=== PATIENT | male | born 1950 | race Caucasian/White ===

== ENCOUNTER 2016-12-11 13:24 | Inpatient (IN) | payer MEDICARE ==
[2016-12-11] MEDS ORDERED: ASPIRIN-DIPYRI1 EACH PO (13:36)
[2016-12-11] MEDS ORDERED: SPIRIVA18 MC1 INH (13:37)
[2016-12-11] MEDS ORDERED: ZEBETA5 M2 PO (13:37)
[2016-12-11] MEDS ORDERED: VALIUM10 M1 PO (13:37)
[2016-12-11] MEDS ORDERED: CELEBREX200 M1 PO (13:37)
[2016-12-11] MEDS ORDERED: AMITRIPTYLINE H25 M1 PO (13:38)
[2016-12-11] MEDS ORDERED: FISH OIL 11000 MG/CA PO (13:49)
[2016-12-11] MEDS ORDERED: GINSENG100 M2 PO (13:49)
[2016-12-11] MEDS ORDERED: ASPIRIN EC325 M1 PO (13:49)
[2016-12-11] MEDS ORDERED: GARLIC1 EAC1 PO (13:50)
[2016-12-11] MEDS ORDERED: ZINC PO (13:51)
[2016-12-11 14:20] LABS: ABG CO2 ARTERIAL 35 mmol/L (21-27); ARTERIAL BLD GAS O2 SATURATION 88 % (95-98); ARTERIAL BLOOD GAS PCO2 55 mmHg (32-45); ARTERIAL PO2 57 mmHg (70-100); BICARBONATE 33 mmol/L (21-28); BLOOD GAS BASE EXCESS 7 mM/L (-/+3)
[2016-12-11 14:26] LABS: BASO % 0.1 % (0-2); EOS % 1.1 % (0-7); EOSINOPHIL ABSOLUTE COUNT 0.1 tho/cmm (0.0-0.7); HGB-HEMOGLOBIN 20.1 gm/dl (13.5-17.0); IMMATURE GRANULOCYTES ABSOLUTE 0.03 tho/cmm (0-0.03); IMMATURE GRANULOCYTES PERCENT 0.3 % (0-0.3); LYMPH % 14.3 % (20-45); LYMPH ABSOLUTE COUNT 1.3 tho/cmm (0.8-4.5); MCHC MEAN CORPUSCULAR HGB CONC 33.1 % (32.0-36.0); MCV (MEAN CELL VOLUME) 99.5 fl (82.0-96.0); MEAN PLATELET VOLUME 10.6 cmc (9.4-12.4); MONO % 8.9 % (0-12); MONOCYTE ABSOLUTE COUNT 0.8 tho/cmm (0.0-1.2); NEUTROPHIL ABSOLUTE COUNT 6.8 tho/cmm (1.6-8.0); NEUTROPHIL-AUTOMATED 6.8 tho/cmm (1.6-8.0); NEUTROPHILS % 75.3 % (40-80); PLATELET COUNT 144 tho/cmm (150-450); RED CELL DISTRIBUTION WIDTH 15.6 % (12.4-16.4)
[2016-12-11 14:39] LABS: ANION GAP 9 mmol/L (0-20); BLOOD UREA NITROGEN 18 mg/dl (6-24); CALCIUM 8.8 mg/dl (8.5-10.5); CARBON DIOXIDE-VENOUS 34 mmol/L (22-32); CHLORIDE 100 mmol/l (96-110); CREATININE 1.19 mg/dl (0.60-1.30); GLUCOSE 102 mg/dL (70-110); MAGNESIUM 2.1 mg/dl (1.3-2.6); SODIUM 139 mmol/L (135-145); eGFR VALUE FOR BLACK 74 mL/Min
[2016-12-11 14:40] LABS: INR 1.2 INR (0.9-1.1); PROTHROMBIN TIME 13.6 SECONDS (9.0-13.6)
[2016-12-11 14:50] LABS: POTASSIUM 3.9 mmol/L (3.7-5.1)
[2016-12-11 14:54] LABS: ALB/GLOB RATIO 0.6 (0.8-2.0); ALBUMIN 3.1 g/dl (3.5-5.0); BILIRUBIN,DIRECT 0.7 mg/dl (0.0-0.3); BILIRUBIN,INDIRECT 1.3 mg/dL (0.0-1.0)
[2016-12-11 14:57] LABS: PROCALCITONIN <0.05 ng/ml (0.05-0.09)
[2016-12-11 15:06] LABS: HCT-HEMATOCRIT 60.7 % (36.0-53.5)
[2016-12-11 16:46] LABS: ABG CO2 ARTERIAL 39 mmol/L (21-27); BICARBONATE 36 mmol/L (21-28); BLOOD GAS BASE EXCESS 5 mM/L (-/+3); PH 7.27 Units (7.35-7.45)
[2016-12-11 16:51] LABS: ARTERIAL BLD GAS O2 SATURATION 98 % (95-98); ARTERIAL PO2 165 mmHg (70-100)
[2016-12-11 16:54] LABS: ARTERIAL BLOOD GAS PCO2 81 mmHg (32-45)
[2016-12-11 20:01] LABS: ABG CO2 ARTERIAL 37 mmol/L (21-27); ARTERIAL BLD GAS O2 SATURATION 95 % (95-98); ARTERIAL BLOOD GAS PCO2 71 mmHg (32-45); ARTERIAL PO2 84 mmHg (70-100); BICARBONATE 34 mmol/L (21-28); BLOOD GAS BASE EXCESS 5 mM/L (-/+3); PH 7.31 Units (7.35-7.45)
[2016-12-12 03:53] LABS: BASO % 0.1 % (0-2); EOS % 0.3 % (0-7); HCT-HEMATOCRIT 56.2 % (36.0-53.5); HGB-HEMOGLOBIN 18.4 gm/dl (13.5-17.0); IMMATURE GRANULOCYTES ABSOLUTE 0.01 tho/cmm (0-0.03); IMMATURE GRANULOCYTES PERCENT 0.1 % (0-0.3); LYMPH % 4.1 % (20-45); LYMPH ABSOLUTE COUNT 0.4 tho/cmm (0.8-4.5); MCH (MEAN CORPUSCULAR HGB) 32.6 pg (28.0-32.0); MCHC MEAN CORPUSCULAR HGB CONC 32.7 % (32.0-36.0); MCV (MEAN CELL VOLUME) 99.6 fl (82.0-96.0); MEAN PLATELET VOLUME 10.9 cmc (9.4-12.4); MONO % 1.9 % (0-12); MONOCYTE ABSOLUTE COUNT 0.2 tho/cmm (0.0-1.2); NEUTROPHIL ABSOLUTE COUNT 8.5 tho/cmm (1.6-8.0); NEUTROPHIL-AUTOMATED 8.5 tho/cmm (1.6-8.0); NEUTROPHILS % 93.5 % (40-80); PLATELET COUNT 154 tho/cmm (150-450); RED BLOOD COUNT 5.64 mil/cmm (4.40-5.70); RED CELL DISTRIBUTION WIDTH 15.5 % (12.4-16.4); WHITE BLOOD COUNT 9.1 tho/cmm (4.0-10.0)
[2016-12-12 04:12] LABS: ABG CO2 ARTERIAL 35 mmol/L (21-27); ARTERIAL BLD GAS O2 SATURATION 93 % (95-98); BICARBONATE 33 mmol/L (21-28); BLOOD GAS BASE EXCESS 7 mM/L (-/+3); PH 7.43 Units (7.35-7.45)
[2016-12-12 04:14] LABS: ARTERIAL BLOOD GAS PCO2 51 mmHg (32-45); ARTERIAL PO2 66 mmHg (70-100)
[2016-12-12 05:06] LABS: URINE BILIRUBIN NEGATIVE (NEG); URINE BLOOD LARGE (NEG); URINE GLUCOSE (UA) NEGATIVE (NEG); URINE KETONE SMALL (NEG); URINE LEUKOCYTE ESTERASE POSITIVE (NEG); URINE NITRITE NEGATIVE (NEG); URINE PROTEIN MODERATE (NEG)
[2016-12-12 05:18] LABS: URINE APPEARANCE HAZY; URINE COLOR YELLOW
[2016-12-12 05:40] LABS: URINE BACTERIA 1+; URINE RBC 80-100 /[HPF] (0-5); URINE WBC FULL FIELD /[HPF] (0-5)
[2016-12-12 09:17] LABS: BLOOD UREA NITROGEN 17 mg/dl (6-24); CALCIUM 8.4 mg/dl (8.5-10.5); CARBON DIOXIDE-VENOUS 30 mmol/L (22-32); CHLORIDE 102 mmol/l (96-110); GLUCOSE 106 mg/dL (70-110); PHOSPHOROUS 3.1 mg/dl (2.5-4.9); SODIUM 140 mmol/L (135-145); eGFR VALUE FOR BLACK >90 mL/Min
[2016-12-12 09:28] LABS: ANION GAP 13 mmol/L (0-20); MAGNESIUM 1.8 mg/dl (1.3-2.6)
[2016-12-12 11:29] LABS: ABG CO2 ARTERIAL 33 mmol/L (21-27); ARTERIAL BLD GAS O2 SATURATION 96 % (95-98); ARTERIAL BLOOD GAS PCO2 41 mmHg (32-45); ARTERIAL PO2 77 mmHg (70-100); BICARBONATE 31 mmol/L (21-28); BLOOD GAS BASE EXCESS 8 mM/L (-/+3)
[2016-12-14 04:23] LABS: PLATELET COUNT 222 tho/cmm (150-450)
[2016-12-15 14:19] LABS: HCT-HEMATOCRIT 53.7 % (36.0-53.5); IMMATURE GRANULOCYTES ABSOLUTE 0.03 tho/cmm (0-0.03); IMMATURE GRANULOCYTES PERCENT 0.3 % (0-0.3); LYMPH % 6.4 % (20-45); LYMPH ABSOLUTE COUNT 0.7 tho/cmm (0.8-4.5); MCH (MEAN CORPUSCULAR HGB) 32.9 pg (28.0-32.0); MCHC MEAN CORPUSCULAR HGB CONC 33.5 % (32.0-36.0); MCV (MEAN CELL VOLUME) 98.2 fl (82.0-96.0); MONO % 4.8 % (0-12); MONOCYTE ABSOLUTE COUNT 0.5 tho/cmm (0.0-1.2); NEUTROPHIL ABSOLUTE COUNT 9.6 tho/cmm (1.6-8.0); NEUTROPHIL-AUTOMATED 9.6 tho/cmm (1.6-8.0); NEUTROPHILS % 88.5 % (40-80); PLATELET COUNT 211 tho/cmm (150-450); RED BLOOD COUNT 5.47 mil/cmm (4.40-5.70); RED CELL DISTRIBUTION WIDTH 14.5 % (12.4-16.4); WHITE BLOOD COUNT 10.8 tho/cmm (4.0-10.0)
[2016-12-15 14:29] LABS: ANION GAP 10 mmol/L (0-20); BLOOD UREA NITROGEN 25 mg/dl (6-24); CALCIUM 8.3 mg/dl (8.5-10.5); CARBON DIOXIDE-VENOUS 36 mmol/L (22-32); CHLORIDE 94 mmol/l (96-110); CREATININE 1.04 mg/dl (0.60-1.30); GLUCOSE 139 mg/dL (70-110); POTASSIUM 4.1 mmol/L (3.7-5.1); SODIUM 136 mmol/L (135-145); eGFR VALUE FOR BLACK 87 mL/Min
[2016-12-16 04:16] LABS: HGB-HEMOGLOBIN 17.4 gm/dl (13.5-17.0); PLATELET COUNT 214 tho/cmm (150-450)
[2016-12-16 13:44] LABS: URINE APPEARANCE CLEAR; URINE BILIRUBIN SMALL (NEG); URINE BLOOD MODERATE (NEG); URINE COLOR DARK YELLOW; URINE GLUCOSE (UA) NEGATIVE (NEG); URINE KETONE NEGATIVE (NEG); URINE LEUKOCYTE ESTERASE POSITIVE (NEG); URINE NITRITE NEGATIVE (NEG); URINE PROTEIN MODERATE (NEG); URINE SPECIFIC GRAVITY 1.015 (1.003-1.030)
[2016-12-16 14:16] LABS: URINE EPITHELIAL CELLS 0 /[HPF] (0-10); URINE WBC 0-1 /[HPF] (0-5)
[2016-12-17 04:35] LABS: ALB/GLOB RATIO 0.6 (0.8-2.0); ALBUMIN 2.7 g/dl (3.5-5.0); ALKALINE PHOSPHATASE 57 U/L (33-138); ALT/SGPT 173 U/L (12-78); BLOOD UREA NITROGEN 28 mg/dl (6-24); CALCIUM 8.4 mg/dl (8.5-10.5); CARBON DIOXIDE-VENOUS 40 mmol/L (22-32); CHLORIDE 91 mmol/l (96-110); GLUCOSE 142 mg/dL (70-110); SODIUM 133 mmol/L (135-145); eGFR VALUE FOR BLACK >90 mL/Min
[2016-12-17 04:52] LABS: ANION GAP 7 mmol/L (0-20); AST/SGOT 53 U/L (10-40); POTASSIUM 4.6 mmol/L (3.7-5.1)
[2016-12-17 04:58] LABS: HCT-HEMATOCRIT 53.6 % (36.0-53.5); HGB-HEMOGLOBIN 17.7 gm/dl (13.5-17.0); IMMATURE GRANULOCYTES ABSOLUTE 0.03 tho/cmm (0-0.03); IMMATURE GRANULOCYTES PERCENT 0.2 % (0-0.3); LYMPH % 4.1 % (20-45); LYMPH ABSOLUTE COUNT 0.5 tho/cmm (0.8-4.5); MCH (MEAN CORPUSCULAR HGB) 32.6 pg (28.0-32.0); MCV (MEAN CELL VOLUME) 98.7 fl (82.0-96.0); MEAN PLATELET VOLUME 10.4 cmc (9.4-12.4); MONO % 5.9 % (0-12); MONOCYTE ABSOLUTE COUNT 0.8 tho/cmm (0.0-1.2); NEUTROPHIL ABSOLUTE COUNT 11.6 tho/cmm (1.6-8.0); NEUTROPHIL-AUTOMATED 11.6 tho/cmm (1.6-8.0); NEUTROPHILS % 89.8 % (40-80); PLATELET COUNT 208 tho/cmm (150-450); RED BLOOD COUNT 5.43 mil/cmm (4.40-5.70); RED CELL DISTRIBUTION WIDTH 14.6 % (12.4-16.4)
[2016-12-17 10:56] LABS: ABG CO2 ARTERIAL 39 mmol/L (21-27); ARTERIAL BLD GAS O2 SATURATION 92 % (95-98); ARTERIAL BLOOD GAS PCO2 67 mmHg (32-45); ARTERIAL PO2 65 mmHg (70-100); BICARBONATE 37 mmol/L (21-28); BLOOD GAS BASE EXCESS 8 mM/L (-/+3); PH 7.36 Units (7.35-7.45)
[2016-12-17 15:48] LABS: ARTERIAL BLD GAS O2 SATURATION 92 % (95-98); ARTERIAL PO2 68 mmHg (70-100); BICARBONATE 42 mmol/L (21-28); BLOOD GAS BASE EXCESS 12 mM/L (-/+3); PH 7.36 Units (7.35-7.45)
[2016-12-17 15:51] LABS: ABG CO2 ARTERIAL 45 mmol/L (21-27); ARTERIAL BLOOD GAS PCO2 76 mmHg (32-45)
[2016-12-18 04:45] LABS: HGB-HEMOGLOBIN 17.3 gm/dl (13.5-17.0); IMMATURE GRANULOCYTES ABSOLUTE 0.06 tho/cmm (0-0.03); IMMATURE GRANULOCYTES PERCENT 0.4 % (0-0.3); LYMPH % 3.7 % (20-45); LYMPH ABSOLUTE COUNT 0.6 tho/cmm (0.8-4.5); MCH (MEAN CORPUSCULAR HGB) 32.8 pg (28.0-32.0); MCHC MEAN CORPUSCULAR HGB CONC 33.3 % (32.0-36.0); MCV (MEAN CELL VOLUME) 98.5 fl (82.0-96.0); MEAN PLATELET VOLUME 10.1 cmc (9.4-12.4); MONO % 5.9 % (0-12); NEUTROPHIL ABSOLUTE COUNT 14.6 tho/cmm (1.6-8.0); NEUTROPHIL-AUTOMATED 14.6 tho/cmm (1.6-8.0); PLATELET COUNT 192 tho/cmm (150-450); RED BLOOD COUNT 5.28 mil/cmm (4.40-5.70); RED CELL DISTRIBUTION WIDTH 14.5 % (12.4-16.4); WHITE BLOOD COUNT 16.2 tho/cmm (4.0-10.0)
[2016-12-18 05:06] LABS: ALBUMIN 2.5 g/dl (3.5-5.0); ANION GAP 8 mmol/L (0-20); BLOOD UREA NITROGEN 28 mg/dl (6-24); CALCIUM 8.4 mg/dl (8.5-10.5); CHLORIDE 90 mmol/l (96-110); GLUCOSE 140 mg/dL (70-110); POTASSIUM 4.5 mmol/L (3.7-5.1); SODIUM 134 mmol/L (135-145)
[2016-12-18 05:09] LABS: ALB/GLOB RATIO 0.6 (0.8-2.0); ALKALINE PHOSPHATASE 56 U/L (33-138); ALT/SGPT 132 U/L (12-78); AST/SGOT 34 U/L (10-40); BILIRUBIN,TOTAL 1.8 mg/dl (0.0-1.5); CREATININE 0.83 mg/dl (0.60-1.30); eGFR VALUE FOR BLACK >90 mL/Min
[2016-12-18 05:27] LABS: CARBON DIOXIDE-VENOUS 41 mmol/L (22-32)
[2016-12-18 09:43] LABS: ARTERIAL BLD GAS O2 SATURATION 92 % (95-98); ARTERIAL PO2 65 mmHg (70-100); BICARBONATE 42 mmol/L (21-28); BLOOD GAS BASE EXCESS 13 mM/L (-/+3); PH 7.39 Units (7.35-7.45)
[2016-12-18 09:51] LABS: ABG CO2 ARTERIAL 44 mmol/L (21-27); ARTERIAL BLOOD GAS PCO2 71 mmHg (32-45)
[2016-12-19 15:55] LABS: ARTERIAL BLOOD GAS PCO2 60 mmHg (32-45); BICARBONATE 40 mmol/L (21-28); BLOOD GAS BASE EXCESS 13 mM/L (-/+3); PH 7.44 Units (7.35-7.45)
[2016-12-19 15:56] LABS: ARTERIAL BLD GAS O2 SATURATION 81 % (95-98)
[2016-12-19 15:58] LABS: ABG CO2 ARTERIAL 42 mmol/L (21-27); ARTERIAL PO2 45 mmHg (70-100)
[2016-12-20 05:30] LABS: ALBUMIN 2.5 g/dl (3.5-5.0); ALT/SGPT 127 U/L (12-78); ANION GAP 7 mmol/L (0-20); BLOOD UREA NITROGEN 24 mg/dl (6-24); CALCIUM 8.4 mg/dl (8.5-10.5); CHLORIDE 88 mmol/l (96-110); GLUCOSE 165 mg/dL (70-110); POTASSIUM 4.3 mmol/L (3.7-5.1); SODIUM 133 mmol/L (135-145)
[2016-12-20 05:32] LABS: ALB/GLOB RATIO 0.6 (0.8-2.0); ALKALINE PHOSPHATASE 56 U/L (33-138); AST/SGOT 40 U/L (10-40); BILIRUBIN,TOTAL 1.3 mg/dl (0.0-1.5); eGFR VALUE FOR BLACK >90 mL/Min
[2016-12-20 05:42] LABS: CARBON DIOXIDE-VENOUS 42 mmol/L (22-32)
[2016-12-21 19:03] LABS: ALB/GLOB RATIO 0.7 (0.8-2.0); ALBUMIN 2.6 g/dl (3.5-5.0); ALKALINE PHOSPHATASE 52 U/L (33-138); ALT/SGPT 124 U/L (12-78); ANION GAP 10 mmol/L (0-20); AST/SGOT 36 U/L (10-40); BLOOD UREA NITROGEN 26 mg/dl (6-24); CALCIUM 8.4 mg/dl (8.5-10.5); CARBON DIOXIDE-VENOUS 37 mmol/L (22-32); CHLORIDE 90 mmol/l (96-110); CREATININE 0.91 mg/dl (0.60-1.30); GLUCOSE 120 mg/dL (70-110); POTASSIUM 4.2 mmol/L (3.7-5.1); SODIUM 133 mmol/L (135-145); eGFR VALUE FOR BLACK >90 mL/Min
[2016-12-22 04:40] LABS: ARTERIAL BLD GAS O2 SATURATION 94 % (95-98); ARTERIAL BLOOD GAS PCO2 57 mmHg (32-45); ARTERIAL PO2 67 mmHg (70-100); BICARBONATE 40 mmol/L (21-28); BLOOD GAS BASE EXCESS 13 mM/L (-/+3); PH 7.46 Units (7.35-7.45)
[2016-12-22 04:45] LABS: ABG CO2 ARTERIAL 42 mmol/L (21-27)
[2016-12-22 04:55] LABS: ALB/GLOB RATIO 0.7 (0.8-2.0); ALBUMIN 2.6 g/dl (3.5-5.0); ALKALINE PHOSPHATASE 53 U/L (33-138); ALT/SGPT 118 U/L (12-78); BILIRUBIN,TOTAL 1.2 mg/dl (0.0-1.5); BLOOD UREA NITROGEN 26 mg/dl (6-24); CALCIUM 8.5 mg/dl (8.5-10.5); CARBON DIOXIDE-VENOUS 39 mmol/L (22-32); CHLORIDE 89 mmol/l (96-110); CREATININE 0.94 mg/dl (0.60-1.30); SODIUM 133 mmol/L (135-145); eGFR VALUE FOR BLACK >90 mL/Min
[2016-12-22 04:57] LABS: ANION GAP 9 mmol/L (0-20); AST/SGOT 36 U/L (10-40); GLUCOSE 197 mg/dL (70-110)
[2016-12-22 04:58] LABS: POTASSIUM 4.3 mmol/L (3.7-5.1)
[2016-12-23 05:10] LABS: EOS % 0.2 % (0-7); HCT-HEMATOCRIT 47.9 % (36.0-53.5); IMMATURE GRANULOCYTES ABSOLUTE 0.04 tho/cmm (0-0.03); IMMATURE GRANULOCYTES PERCENT 0.4 % (0-0.3); LYMPH % 5.6 % (20-45); LYMPH ABSOLUTE COUNT 0.6 tho/cmm (0.8-4.5); MCHC MEAN CORPUSCULAR HGB CONC 33.4 % (32.0-36.0); MCV (MEAN CELL VOLUME) 95.8 fl (82.0-96.0); MEAN PLATELET VOLUME 9.8 cmc (9.4-12.4); MONO % 11.4 % (0-12); MONOCYTE ABSOLUTE COUNT 1.2 tho/cmm (0.0-1.2); NEUTROPHIL ABSOLUTE COUNT 8.9 tho/cmm (1.6-8.0); NEUTROPHIL-AUTOMATED 8.9 tho/cmm (1.6-8.0); NEUTROPHILS % 82.4 % (40-80); PLATELET COUNT 205 tho/cmm (150-450); RED CELL DISTRIBUTION WIDTH 13.8 % (12.4-16.4); WHITE BLOOD COUNT 10.8 tho/cmm (4.0-10.0)
[2016-12-23 05:25] LABS: ALB/GLOB RATIO 0.7 (0.8-2.0); ALBUMIN 2.6 g/dl (3.5-5.0); ALKALINE PHOSPHATASE 53 U/L (33-138); ALT/SGPT 129 U/L (12-78); ANION GAP 8 mmol/L (0-20); AST/SGOT 37 U/L (10-40); BLOOD UREA NITROGEN 22 mg/dl (6-24); CALCIUM 8.4 mg/dl (8.5-10.5); CARBON DIOXIDE-VENOUS 39 mmol/L (22-32); CHLORIDE 91 mmol/l (96-110); CREATININE 0.76 mg/dl (0.60-1.30); GLUCOSE 137 mg/dL (70-110); SODIUM 134 mmol/L (135-145); eGFR VALUE FOR BLACK >90 mL/Min
[2016-12-25 03:57] LABS: BASO % 0.1 % (0-2); EOS % 0.1 % (0-7); HCT-HEMATOCRIT 48.6 % (36.0-53.5); HGB-HEMOGLOBIN 16.4 gm/dl (13.5-17.0); IMMATURE GRANULOCYTES ABSOLUTE 0.09 tho/cmm (0-0.03); IMMATURE GRANULOCYTES PERCENT 0.7 % (0-0.3); LYMPH ABSOLUTE COUNT 0.6 tho/cmm (0.8-4.5); MCH (MEAN CORPUSCULAR HGB) 32.2 pg (28.0-32.0); MCHC MEAN CORPUSCULAR HGB CONC 33.7 % (32.0-36.0); MCV (MEAN CELL VOLUME) 95.3 fl (82.0-96.0); MONO % 9.9 % (0-12); MONOCYTE ABSOLUTE COUNT 1.2 tho/cmm (0.0-1.2); NEUTROPHIL ABSOLUTE COUNT 10.2 tho/cmm (1.6-8.0); NEUTROPHIL-AUTOMATED 10.2 tho/cmm (1.6-8.0); NEUTROPHILS % 84.2 % (40-80); PLATELET COUNT 222 tho/cmm (150-450); RED CELL DISTRIBUTION WIDTH 13.7 % (12.4-16.4); WHITE BLOOD COUNT 12.1 tho/cmm (4.0-10.0)
[2016-12-25 04:22] LABS: ALB/GLOB RATIO 0.7 (0.8-2.0); ALBUMIN 2.7 g/dl (3.5-5.0); ALKALINE PHOSPHATASE 62 U/L (33-138); ALT/SGPT 113 U/L (12-78); BILIRUBIN,TOTAL 0.6 mg/dl (0.0-1.5); BLOOD UREA NITROGEN 21 mg/dl (6-24); CALCIUM 8.6 mg/dl (8.5-10.5); CHLORIDE 90 mmol/l (96-110); CREATININE 0.81 mg/dl (0.60-1.30); GLUCOSE 169 mg/dL (70-110); SODIUM 134 mmol/L (135-145); eGFR VALUE FOR BLACK >90 mL/Min
[2016-12-25 05:01] LABS: ANION GAP 7 mmol/L (0-20); AST/SGOT 26 U/L (10-40); CARBON DIOXIDE-VENOUS 41 mmol/L (22-32); POTASSIUM 4.1 mmol/L (3.7-5.1)
[2016-12-26 04:35] LABS: BASO % 0.1 % (0-2); EOS % 0.1 % (0-7); HCT-HEMATOCRIT 48.7 % (36.0-53.5); HGB-HEMOGLOBIN 16.4 gm/dl (13.5-17.0); IMMATURE GRANULOCYTES ABSOLUTE 0.08 tho/cmm (0-0.03); IMMATURE GRANULOCYTES PERCENT 0.6 % (0-0.3); LYMPH % 7.7 % (20-45); MCH (MEAN CORPUSCULAR HGB) 32.2 pg (28.0-32.0); MCHC MEAN CORPUSCULAR HGB CONC 33.7 % (32.0-36.0); MCV (MEAN CELL VOLUME) 95.7 fl (82.0-96.0); MEAN PLATELET VOLUME 9.5 cmc (9.4-12.4); MONO % 9.4 % (0-12); MONOCYTE ABSOLUTE COUNT 1.2 tho/cmm (0.0-1.2); NEUTROPHIL ABSOLUTE COUNT 10.4 tho/cmm (1.6-8.0); NEUTROPHIL-AUTOMATED 10.4 tho/cmm (1.6-8.0); NEUTROPHILS % 82.1 % (40-80); PLATELET COUNT 209 tho/cmm (150-450); RED BLOOD COUNT 5.09 mil/cmm (4.40-5.70); RED CELL DISTRIBUTION WIDTH 13.8 % (12.4-16.4); WHITE BLOOD COUNT 12.6 tho/cmm (4.0-10.0)
[2016-12-26 04:50] LABS: ANION GAP 7 mmol/L (0-20); BLOOD UREA NITROGEN 24 mg/dl (6-24); CALCIUM 8.8 mg/dl (8.5-10.5); CHLORIDE 89 mmol/l (96-110); CREATININE 0.82 mg/dl (0.60-1.30); GLUCOSE 149 mg/dL (70-110); POTASSIUM 3.9 mmol/L (3.7-5.1); SODIUM 133 mmol/L (135-145); eGFR VALUE FOR BLACK >90 mL/Min
[2016-12-26 05:02] LABS: CARBON DIOXIDE-VENOUS 41 mmol/L (22-32)
[2016-12-26 05:23] LABS: ABG CO2 ARTERIAL 30 mmol/L (21-27); ARTERIAL BLD GAS O2 SATURATION 99 % (95-98); ARTERIAL BLOOD GAS PCO2 48 mmHg (32-45); ARTERIAL PO2 111 mmHg (70-100); BICARBONATE 38 mmol/L (21-28); BLOOD GAS BASE EXCESS 12 mM/L (-/+3)
[2016-12-26] MEDS ORDERED: NYSTATIN100000 UNI SSP (12:57)
[2016-12-26] MEDS ORDERED: SPIRIVA18 MC1 INH (12:57)
[2016-12-26] MEDS ORDERED: ALBUTEROL0.63 MG/1 INH ×2 (12:58→13:00)
[2016-12-26] MEDS ORDERED: BROVANA15 MCG/22 INH (13:00)
[2016-12-26] MEDS ORDERED: LOPRESSOR50 M1 PO (13:02)
[2016-12-26] MEDS ORDERED: NORVASC5 M2 PO (13:02)
[2016-12-26] MEDS ORDERED: XARELTO20 M1 PO (13:02)
[2016-12-26] MEDS ORDERED: NORCO 5-325 TA1 EACH PO (13:03)
[2016-12-26] MEDS ORDERED: ASPIRIN81 M1 PO (13:03)
[2016-12-26] MEDS ORDERED: CELEBREX200 M1 PO (13:03)
[2016-12-26] MEDS ORDERED: TYLENOL325 M2 PO (13:04)
[2016-12-26] MEDS ORDERED: MORPHINE IV (13:04)
[2016-12-26] MEDS ORDERED: VALIUM5 M1 PO (13:05)
[2016-12-26] MEDS ORDERED: AMITRIPTYLINE H50 M1 PO (13:05)
[2016-12-26] MEDS ORDERED: POTASSIUM CHLO20 ME3 PO (13:06)
[2016-12-26] MEDS ORDERED: LASIX40 M1 IV (13:11)
[2016-12-26] MEDS ORDERED: PULMICORT0.5 MG/22 INH (13:12)
[2016-12-26] MEDS ORDERED: MAG-AL PLUS XS30 M1 PO (13:13)
[2016-12-26] MEDS ORDERED: BISCOLAX10 MG PR (13:13)
[2016-12-26] MEDS ORDERED: MILK OF MAGNESIA PO (13:14)
[2016-12-26] MEDS ORDERED: MIRALAX17 G2 PO (13:15)
[2016-12-26] MEDS ORDERED: SENOKOT-S TABL1 EACH PO (13:15)
[2016-12-26] MEDS ORDERED: ZOFRAN4 MG/5 M1 IV (13:17)
[2016-12-26] MEDS ORDERED: SOLU MEDRO IV (13:19)
== END 2016-12-26 14:46 | DRG 175 ==
LOC: EDMED 13:24 → EMR2 17:03 → CCU 19:30 → PCUB 12-14 21:31
PROVIDERS: Emergency Medicine; Family Medicine; Hospitalist; Internal Medicine Critical Care Medicine; Internal Medicine Pulmonary Disease; Nurse Practitioner; Nurse Practitioner Acute Care; Physician Assistant; ADMIT Internal Medicine
PROC: 5A09457 Assistance with Respiratory Ventilation, 24-96 Consecutive Hours, Continuous Positive Airway Pressure (ICD-10-PCS; principal; 2016-12-11)
DX: I26.99 Other pulmonary embolism without acute cor pulmonale (principal); J96.01 Acute respiratory failure with hypoxia; G93.40 Encephalopathy, unspecified; I50.23 Acute on chronic systolic (congestive) heart failure; J96.02 Acute respiratory failure with hypercapnia; I47.1 Supraventricular tachycardia; D75.1 Secondary polycythemia; Z86.74 Personal history of sudden cardiac arrest; Z68.41 Body mass index [BMI] 40.0-44.9, adult; I82.512 Chronic embolism and thrombosis of left femoral vein; I82.532 Chronic embolism and thrombosis of left popliteal vein; I82.413 Acute embolism and thrombosis of femoral vein, bilateral; I11.0 Hypertensive heart disease with heart failure; I73.9 Peripheral vascular disease, unspecified; J44.9 Chronic obstructive pulmonary disease, unspecified; F32.9 Major depressive disorder, single episode, unspecified; F41.9 Anxiety disorder, unspecified; E66.01 Morbid (severe) obesity due to excess calories; K59.00 Constipation, unspecified; Z91.14 Patient's other noncompliance with medication regimen; Z86.711 Personal history of pulmonary embolism; Z87.891 Personal history of nicotine dependence; Z79.82 Long term (current) use of aspirin; Z79.899 Other long term (current) drug therapy
CPT/HCPCS: C1751; J0282; J1650; J1940; J1956; J2405; J2543; J2920; J2930; J2997; Q9967